=== PATIENT | female | born 1995 | race Caucasian/White ===

== ENCOUNTER 2018-01-20 17:44 | Emergency (ER) | payer OTHER ==
[~2018-01-20] VITALS: Ht 154.9 cm; Wt 46.3 kg
[2018-01-20 17:46] VITALS: Ht 154.9 cm; Wt 46.3 kg
[2018-01-20 19:14] VITALS: BP 121/76
== END 2018-01-20 19:14 | disposition home or self-care (01) ==
LOC: ED 17:44
DX: M25.562 Pain in left knee (principal)

== ENCOUNTER 2018-02-26 14:17 | Emergency (ER) | payer OTHER ==
[~2018-02-26] VITALS: Ht 154.9 cm; Wt 50.3 kg
[2018-02-26 14:30] VITALS: BP 125/58; Ht 154.9 cm; Wt 50.3 kg
== END 2018-02-26 15:03 | disposition home or self-care (01) ==
LOC: ED 14:17
DX: O26.891 Other specified pregnancy related conditions, first trimester (principal); S80.869A Insect bite (nonvenomous), unspecified lower leg, initial encounter; S30.860A Insect bite (nonvenomous) of lower back and pelvis, initial encounter; S20.469A Insect bite (nonvenomous) of unspecified back wall of thorax, initial encounter; Z3A.12 12 weeks gestation of pregnancy; W57.XXXA Bitten or stung by nonvenomous insect and other nonvenomous arthropods, initial encounter; Y93.89 Activity, other specified; Y92.89 Other specified places as the place of occurrence of the external cause; Y99.8 Other external cause status

== ENCOUNTER 2018-03-18 07:42 | Emergency (ER) | payer OTHER ==
[~2018-03-18] VITALS: Ht 154.9 cm; Wt 52.6 kg
[2018-03-18 07:47] VITALS: Ht 154.9 cm; Wt 52.6 kg
[2018-03-18 08:46] VITALS: BP 113/71
== END 2018-03-18 08:47 | disposition home or self-care (01) ==
LOC: ED 07:42
DX: O26.892 Other specified pregnancy related conditions, second trimester (principal); R10.31 Right lower quadrant pain; R10.32 Left lower quadrant pain; Z3A.16 16 weeks gestation of pregnancy

== ENCOUNTER 2019-03-23 12:18 | Emergency (ER) | payer MEDICAID ==
[~2019-03-23] VITALS: Ht 154.9 cm; Wt 70.8 kg
[2019-03-23 12:26] VITALS: Ht 154.9 cm; Wt 70.8 kg
[2019-03-23 13:01] LABS: BASOPHIL % 0.4 % (0-2); RED CELL DISTRIBUTION WIDTH 12.8 % (11.5-14.5)
[2019-03-23 13:06] LABS: PLATELET COUNT 407 x10^3mcL (130-400)
[2019-03-23 13:16] LABS: CALCIUM 9.2 mg/dL (8.5-10.1); CARBON DIOXIDE 25.4 mmol/L (21-32); CHLORIDE SERUM 107 mmol/L (98-107); CREATININE SERUM 0.7 mg/dL (0.6-1.0); GFR1 > 60 mL/min; GLUCOSE SERUM 97 mg/dL (74-106); SODIUM SERUM 143 mmol/L (136-145)
[2019-03-23 13:21] LABS: ALBUMIN 4.1 g/dL (3.4-5.0); ALKALINE PHOSPHATASE 77 U/L (46-116); ALT/SGPT 26 U/L (14-59); AST/SGOT 14 U/L (15-37); BILIRUBIN TOTAL 0.6 mg/dL (0.20-1.00); LIPASE 137 IU/L (73-393); TOTAL PROTEIN, SERUM 8.2 g/dL (6.4-8.2)
[2019-03-23 13:57] VITALS: BP 120/76
== END 2019-03-23 13:57 | disposition home or self-care (01) ==
LOC: ED 12:18
PROVIDERS: Emergency Medicine
DX: R10.30 Lower abdominal pain, unspecified (principal); R11.2 Nausea with vomiting, unspecified
CPT/HCPCS: 36415; Q0092